=== PATIENT | male | born 1960 | race American Indian/Alaskan Native ===

== ENCOUNTER 2016-09-25 10:58 | Inpatient (IN) | payer MEDICAID ==
[2016-09-25 11:08] VITALS: BMI 25.0
[2016-09-25 12:06] LABS: BASO % 0.9 % (0.0-2.0); EOS # 0.2 K/uL (0.0-0.7); EOS % 4.5 % (0.0-4.0); HEMATOCRIT 40.9 % (35.0-51.0); LYMPH # 2.2 K/uL (1.0-4.3); LYMPH % 46.9 % (20.0-40.0); MEAN CELL VOLUME 88.1 fL (80.0-94.0); MEAN CORPUSCULAR HEMOGLOBIN 29.7 pg (27.0-31.0); MEAN CORPUSCULAR HGB CONC 33.8 g/dL (33.0-37.0); MEAN PLATELET VOLUME 6.9 fL (7.2-11.7); MONO # 0.3 K/uL (0.0-0.8); MONO % 5.8 % (0.0-10.0); NRBC % 0.1 % (0.0-2.0); RED CELL DISTRIBUTION WIDTH 14.8 % (11.5-14.5); WHITE BLOOD COUNT 4.6 K/uL (4.8-10.8)
[2016-09-25 12:15] LABS: CHLORIDE 101 mmol/L (98-107); POTASSIUM 3.8 mmol/L (3.6-5.2); SODIUM 140 mmol/L (132-148)
[2016-09-25 12:17] LABS: ALB/GLOB RATIO 1.1 (1.0-2.1); ALKALINE PHOSPHATASE 64 U/L (38-126); AST/SGOT 42 U/L (17-59); BILIRUBIN,TOTAL 1.1 mg/dL (0.2-1.3); CARBON DIOXIDE 25 mmol/L (22-30); GFR AFRICAN-AMERICAN > 60; TOTAL PROTEIN 7.7 g/dL (6.3-8.3)
[2016-09-25 12:18] LABS: ALCOHOL SERUM < 10 mg/dl (0-10); ALT/SGPT 30 U/L (21-72); BLOOD UREA NITROGEN 13 mg/dL (9-20); CALCIUM 8.5 mg/dl (8.6-10.4); GLUCOSE,RANDOM 116 mg/dL (75-110)
[2016-09-25 12:48] LABS: RBC URINE 1 /hpf (0-3); URINE BILIRUBIN NEGATIVE (NEGATIVE); URINE BLOOD NEGATIVE (NEGATIVE); URINE COLOR Yellow (YELLOW); URINE GLUCOSE (UA) NORMAL (Normal); URINE KETONE TRACE mg/dL (NEGATIVE); URINE LEUKOCYTE ESTERASE NEG Leu/uL (Negative); URINE PROTEIN NEGATIVE (NEGATIVE); URINE UROBILINOGEN NORMAL mg/dL (0.2-1.0); WBC URINE 2 /hpf (0-5)
--- NOTE | 2016-09-25 12:48 | C.PDOC ---
History Of Present Illness 56 y/o male presents to the ED requesting heroin detox. Pt is prescreened and last use was yesterday. Denies any physical complaints at this time. Time Seen by Provider: 09/25/16 11:14 Chief Complaint (Nursing): Substance Abuse History Per: Patient History/Exam Limitations: no limitations Suicide/Self Injury Attempted (Context): None Modifying Factor(s): Narcotics Severity: Mild Associated Symptoms: denies: Suicidal Thoughts Involuntary Hold By: None Recent travel outside of the [place]: No Past Medical History Reviewed: Historical Data, Nursing Documentation, Vital Signs Vital Signs: Last Vital Signs Temp 98.4 F 09/25/16 11:08 Pulse 70 09/25/16 11:08 Resp 20 09/25/16 11:08 BP 111/74 09/25/16 11:08 Pulse Ox 99 09/25/16 12:52 - Medical History PMH: Arthritis, HIV Family History: States: Unknown Family Hx - Social History Hx Alcohol Use: Yes Hx Substance Use: Yes - Immunization History Hx Tetanus Toxoid Vaccination: No Hx Influenza Vaccination: No Hx Pneumococcal Vaccination: No Review Of Systems Except As Marked, All Systems Reviewed And Found Negative. Constitutional: Negative for: Fever Cardiovascular: Negative for: Chest Pain Respiratory: Negative for: Shortness of Breath Gastrointestinal: Negative for: Vomiting Neurological: Negative for: Headache Psych: Negative for: Suicidal ideation Physical Exam - Physical Exam Appears: Non-toxic, No Acute Distress Skin: Warm, Dry, No Rash Head: Atraumatic, Normacephalic Eye(s): bilateral: Normal Inspection Oral Mucosa: Moist Neck: Normal ROM, Supple Chest: Symmetrical Cardiovascular: Rhythm Regular, No Murmur Respiratory: Normal Breath Sounds, No Rales, No Rhonchi, No Wheezing Gastrointestinal/Abdominal: Normal Exam, Soft, No Tenderness Extremity: Normal ROM, No Tenderness, No Swelling Extremity: Bilateral: Atraumatic Neurological/Psych: Oriented x3, Normal Speech, Normal Motor Gait: Steady ED Course And Treatment - Laboratory Results Result Diagrams: 09/25/16 12:00 09/25/16 12:00 O2 Sat by Pulse Oximetry: 99 (room air) Pulse Ox Interpretation: Normal Medical Decision Making Medical Decision Making: Plan: UA, labs. CRISIS eval. Admit for detox. Disposition - Disposition Disposition: HOSPITALIZED Disposition Time: 13:29 Condition: FAIR - POA Present On Arrival: None - Clinical Impression Clinical Impression: Opiate dependence - PA / PL[facility]ENTER NURSE / Resident Statement MD/DO has reviewed & agrees with the documentation as recorded. - Scribe Statement The provider has reviewed the documentation as recorded by the Scribe Rod Casas All medical record entries made by the Scribe were at my direction and personally dictated by me. I have reviewed the chart and agree that the record accurately reflects my personal performance of the history, physical exam, medical decision making, and the department course for this patient. I have also personally directed, reviewed, and agree with the discharge instructions and disposition.
[2016-09-25] MEDS ORDERED: Aluminum Hydroxide/Magnesium Hydroxide Susp (30 mL) PO PRN (15:41)
[2016-09-25] MEDS ORDERED: Buprenorphine Hydrochloride 2 mg SL ONE ×2 (18:44→20:30)
[2016-09-26] MEDS: Buprenorphine Hydrochloride 2 mg SL SCH (10:10)
--- NOTE | 2016-09-26 12:00 | PCM.PSYCH ---
Initial Psychiatric Evaluation - Initial Psychiatric Evaluation Type of Admission: Voluntary Legal Status: Capacity Chief Complaint (in patient's own words): I came in to get help History of Present Illness and Precipitating Events: This is a 56 years old AAM, who lives with his friend, currently unemployed on SSD, with a history of heroin dependence, cocaine dependence, alcohol abuse and medical history of HIV came to the ED to get help in heroin detox. Patient reports a long history of heroin abuse and cocaine abuse. Patient denies any past history of inpatient psychiatric hospitalizations, and denies any history of follow-up with any psychiatrist in the past. He states history of multiple detoxes in the past. His last detox was at [facility]. As per the pt, he relapsed on heroin and cocaine soon after his last detox. He started abusing 2-5 bags on a daily basis along with $20-50 of cocaine. he also reports of drinking a couple of beers. Yesterday he abused up to 5 bags of heroin along with $20 cocaine, and started experiencing withdrawal symptoms so came to the hospital to get help. Pt reports of withdrawal symptoms including sweating, headaches, joint pains, anxiety, nausea and cramps. He reports irritable mood, however, denies any feelings of hopelessness and helplessness. Denies any suicidal ideation or homicidal ideation. Patient denies any auditory or visual hallucinations or any psychotic or manic symptoms. He denies any other substance abuse. Past medical history HIV Current Medications: Active Medications Generic Name Dose Route Start Last Admin Trade Name Freq PRN Reason Stop Dose Admin Al Hydrox/Mg Hydrox/Simethicone 30 ml 09/25/16 15:41 Maalox 30 Ml PO TID PRN Indigestion / Heartburn Buprenorphine HCl 6 mg 09/26/16 09:39 09/26/16 10:10 Subutex SL 09/29/16 09:38 6 mg DAILY SHARON Administration Taper Clonidine HCl 0.1 mg 09/25/16 15:42 Catapres PO Q8 PRN COWS Score More or Equal to 5 Dolutegravir Sodium 50 mg 09/26/16 11:00 Tivicay PO DAILY SHARON Emtricitabine/Tenofovir 1 tab 09/26/16 11:00 Truvada 200 Mg-300 Mg PO DAILY SHARON Hydroxyzine HCl 25 mg 09/25/16 15:42 Atarax PO Q6 PRN Agitation Ibuprofen 600 mg 09/25/16 20:50 09/26/16 10:30 Motrin Tab PO 600 mg Q6 PRN Administration Pain, moderate (4-7) Loperamide HCl 2 mg 09/25/16 15:42 Imodium PO Q8 PRN Diarrhea Nicotine 1 patch 09/25/16 15:00 09/26/16 09:38 Nicoderm Cq TD 1 patch DAILY SHARON Administration Ondansetron HCl 4 mg 09/25/16 15:35 Zofran Tab PO Q8 PRN Nausea/Vomiting Pseudoephedrine HCl 60 mg 09/25/16 15:35 Sudafed Tab PO QID PRN Nasal/Sinus Congestion Trazodone HCl 50 mg 09/25/16 22:00 09/25/16 22:28 Desyrel PO 50 mg HS SHARON Administration Past Psychiatric History - Past Psychiatric History Previous Treatment History: Inpatient Pertinent Medical Hx (Current Medical&Sleep Prob, Allergies): Allergies Allergy/AdvReac Type Severity Reaction Status Date / Time No Known Allergies Allergy Verified 09/25/16 11:05 Dolutegravir Sodium [Tivicay] 50 mg PO DAILY 09/25/16 Emtricitabine/Tenofovir Diso [Truvada 200 MG-300 MG] 1 tab PO DAILY 09/25/16 Review of Systems - Review of Systems All systems: reviewed and no additional remarkable complaints except - Psychiatric Psychiatric: Anxiety, Irritability. absent: Auditory Hallucinations, Suicidal Ideation, Visual Hallucinations Mental Status Examination - Personal Presentation Personal Presentation: Looks stated age - Affect Affect: Constricted - Motor Activity Motor Activity: Calm - Reliability in Providing Information Reliability in Providing Information: Good - Speech Speech: Organized - Mood Mood: Anxious - Formal Thought Process Formal Thought Process: No Impairment - Obsessions/Compulsions Obsessions: No Compulsions: No - Cognitive Functions Orientation: Person, Place, Situation, Time Sensorium: Alert Attention/Concentration: Attentive Abstract Thinking: [place] Estimate of Intelligence: Below average Judgement: Imparied, as evidence by: Poor judgement, Intact, as evidence by: Insight regarding need for hospitalization - Risk Risk: Withdrawal, Diminished functioning - Strength & Assets Inventory Strength & Assets Inventory: Cooperative DSM 5 DX - DSM 5 DSM 5 Diagnosis: Opioid use disorder severe Opioid withdrawal Alcohol use disorder Moderate Cocaine use disorder mild - Recommended/Plan of Treatment Treatment Recommendations and Plan of Treatment: Opioid use disorder severe CBT Psychoeducation Supportive therapy, individual therapy Use [place] for abstinence Opioid withdrawal CBT Psychoeducation Supportive therapy, individual therapy Clonidine when necessary Subutax taper Alcohol use disorder Moderate CBT Psychoeducation Supportive therapy, individual therapy Use MA for abstinence Cocaine use disorder mild Monitor signs and symptoms Use MA for abstinence HIV Continue prescribed medications Monitor signs symptoms - Smoking Cessation Smoking Cessation Initiated: No
[2016-09-26] MEDS: Emtricitabine-Tenofovir 200 mg-300 mg Tab PO SCH (13:32)
[2016-09-26 16:03] VITALS: RESP 18
--- NOTE | 2016-09-27 08:52 | PCM.PYCHPN ---
Psychiatric Progress Note - Psychiatric Progress Note Patient seen today, length of contact: 17 min Patient Chief Complaint: I am experiencing withdrawal symptoms Problems Identified/Issues Discussed: Patient seen and evaluated, chart reviewed and discussed with the nurse. The patient reports withdrawal symptoms including anxiety, headaches, joint pains, nausea and sweating. He reports irritable mood but denies denies any suicidal ideation or homicidal ideation. Patient is taking medications and denies any side effects. Supportive therapy and psychoeducation were given. Medication Change: Yes (Subutex taper) Medical Record Reviewed: Yes Mental Status Examination - Cognitive Function Orientation: Person, Place, Situation, Time Memory: Intact Attention: WNL Concentration: Poor Association: WNL Fund of Knowledge: Poor - Mood Mood: Anxious - Affect Affect: Constricted - Speech Speech: Soft - Formal Thought Process Formal Thought Process: No Impairment - Suicidal Ideation Suicidal Ideation: No - Homicidal Ideation Homicidal Ideation: No Goal/Treatment Plan - Goal/Treatment Plan Need for Continued Stay: Discharge may exacerbated symptoms, Severe functional impairment Progress Toward Problem(s) and Goals/Treatment Plan: Opioid use disorder severe CBT Psychoeducation Supportive therapy, individual therapy Use [place] for abstinence Opioid withdrawal CBT Psychoeducation Supportive therapy, individual therapy Clonidine when necessary Subutax taper trazodone 50 mg by mouth daily at bedtime Alcohol use disorder Moderate CBT Psychoeducation Supportive therapy, individual therapy Use [place] for abstinence Cocaine use disorder mild Monitor signs and symptoms Use [place] for abstinence HIV Continue prescribed medications Monitor signs symptoms - Smoking Cessation Smoking Cessation Initiated: No
[2016-09-27] MEDS: Emtricitabine-Tenofovir 200 mg-300 mg Tab PO SCH (09:13)
[2016-09-27] MEDS: Buprenorphine Hydrochloride 2 mg SL SCH (09:13)
[2016-09-28] MEDS: Emtricitabine-Tenofovir 200 mg-300 mg Tab PO SCH (10:05)
[2016-09-28] MEDS: Buprenorphine Hydrochloride 2 mg SL SCH (10:06)
--- NOTE | 2016-09-28 20:25 | PCM.PYCHPN ---
Psychiatric Progress Note - Psychiatric Progress Note Patient seen today, length of contact: 18 min Patient Chief Complaint: "I'm OK" Problems Identified/Issues Discussed: The pt is seen, chart reviewed, case discussed with staff. The pt is compliant with medications and reports no side-effects. Symptoms are improving but needs more time to stabilize. After care discussed, support and psychoeducation given. MS and CBT used briefly. He is fixated on leaving early b/c he needs to work for $. Risks discussed Medication Change: Yes (detox changes daily) Medical Record Reviewed: Yes Mental Status Examination - Cognitive Function Orientation: Person, Place, Situation, Time Memory: Intact Attention: WNL Concentration: Poor Association: WNL Fund of Knowledge: Poor - Mood Mood: Anxious - Affect Affect: Constricted - Speech Speech: Soft - Formal Thought Process Formal Thought Process: No Impairment - Suicidal Ideation Suicidal Ideation: No - Homicidal Ideation Homicidal Ideation: No Goal/Treatment Plan - Goal/Treatment Plan Need for Continued Stay: Discharge may exacerbated symptoms, Severe functional impairment Progress Toward Problem(s) and Goals/Treatment Plan: Continue medications Support and psychoeducation daily Attend groups and activities daily After care planning
--- NOTE | 2016-09-29 08:52 | PCM.PYCHDC ---
Mental Status Examination - Mental Status Examination Orientation: Person Discharge Summary - Discharge Note Consultations:: List each consultation separately and include: 1. Reason for request. 2. Findings. 3. Follow-up Summary of Hospital Course include:: 1. Description of specific treatment plan utilized for patients during their course of treatmen. 2. Summarize the time- course for resolution of acute symptoms and/or regressed behaviors. 3. Describe issues identified and worked on during hospitalization. 4. Describe medication utilized. 5. Describe medical problems identified and treated. 6. Reassessment of suicide risk - Final Diagnosis (DSM 5) Condition upon Discharge: FAIR Disposition: HOME/ ROUTINE Prescriptions/Medication Reconciliation: traZODone [Desyrel] 50 mg PO HS PRN #30 tab PRN Reason: Insomnia
[2016-09-29] MEDS ORDERED: Buprenorphine Hydrochloride 2 mg SL ONE (09:00)
[2016-09-29 09:27] VITALS: BP 105/68; PULSE 64; TEMP 97.9; O2SAT 100
[2016-09-29] MEDS: Emtricitabine-Tenofovir 200 mg-300 mg Tab PO SCH (09:38)
== END 2016-09-29 10:05 | disposition home or self-care (01) | DRG 715 ==
LOC: C.ER 10:58 → C.7D 13:31
PROVIDERS: ADMIT Psychiatry & Neurology Psychiatry; ATTEND Psychiatry & Neurology Psychiatry
PROC: HZ2ZZZZ Detoxification Services for Substance Abuse Treatment (ICD-10-PCS; principal; 2016-09-25)
PROC: HZ59ZZZ Individual Psychotherapy for Substance Abuse Treatment, Supportive (ICD-10-PCS; 2016-09-25)
DX: F11.23 Opioid dependence with withdrawal (principal); F14.10 Cocaine abuse, uncomplicated; F10.10 Alcohol abuse, uncomplicated; Z21 Asymptomatic human immunodeficiency virus [HIV] infection status; Z72.0 Tobacco use